=== PATIENT | female | born 1970 | race Caucasian/White ===

== ENCOUNTER 2016-12-18 18:41 | Emergency (ER) | payer OTHER ==
[~2016-12-18] VITALS: Ht 167.6 cm; Wt 80.5 kg
[~2016-12-18 18:41] MED LIST: D-ME118S6 PO; LEVO125T75 PO; LEVO750T25 PO; LORA-441 PO; MECL-77 PO; ONDA4TAB35 PO
[2016-12-18 18:46] VITALS: Ht 167.6 cm; Wt 80.5 kg
[2016-12-18] MEDS ORDERED: CLIN-73 PO (19:57)
[2016-12-18] MEDS ORDERED: IBUP-1542 PO (19:57)
--- NOTE | 2016-12-18 20:12 | ERD ---
ER Documentation Chief Complaint Date/Time DATE: 12/18/16 TIME: 20:05 Chief Complaint localize swelling right side of jaw x 1 day HPI Patient is a 46-year-old female with a past medical history of hypothyroidism, prediabetes who presents to the emergency department with swelling and redness to her right jaw. Patient states that she had "a pimple" which developed 2 days ago. Patient states she tried to pop it with no discharge elicited. Patient states that she also trying to use tweezers to open it up with no discharge elicited. Patient states that the area appears to be growing and redness and it feels warm to touch. She denies any fevers or chills. Patient denies any chest pain, shortness breath, nausea, vomiting, abdominal pain. Patient reports taking Advil with relief of symptoms. ROS All systems reviewed and are negative except as per history of present illness. Medications Home Meds Active Scripts Ibuprofen* (Motrin*) 600 Mg Tab, 600 MG PO Q6, #20 TAB Prov:ESTELA JAIN PA-C 12/18/16 Clindamycin Hcl* (Clindamycin Hcl*) 300 Mg Capsule, 300 MG PO TID for 10 Days, CAP Prov:ESTELA JAIN PA-C 12/18/16 Dextromethorphan Hb-Promethazine Hcl (Promethazine DM Syrup) 180 Ml Syrup, 10 ML PO Q6H Y for COUGH, #4 OZ Prov:DARIUS TONEY 04/13/16 Levofloxacin* (Levaquin*) 750 Mg Tablet, 750 MG PO DAILY for 5 Days, TAB Prov:DARIUS TONEY 04/13/16 Lorazepam* (Ativan*) 0.5 Mg Tablet, 0.5 MG PO Q8 Y for Dizziness, #5 0 Refills Prov:BLADIMIR ORELLANA MD 05/26/15 Meclizine Hcl* (Meclizine Hcl*) 25 Mg Tablet, 25 MG PO Q8H Y for Dizziness, #15 TAB 0 Refills Prov:BLADIMIR ORELLANA MD 05/26/15 Ondansetron Hcl* (Zofran* ODT) 4 mg -ODT Tab.disper, 4 MG PO Q6 Y for NAUSEA AND /OR VOMITING, #10 TAB Prov:BLADIMIR ORELLANA MD 05/26/15 Reported Medications Levothyroxine Sodium* (Levothyroxine Sodium*) 125 Mcg Tablet, 125 MCG PO DAILY 06/28/12 Allergies Allergies: Coded Allergies: Penicillins (Verified Allergy, Unknown, 04/13/16) PMhx/Soc History of Surgery: Yes (ABNORMAL UTERINE CELLS REMOVED) Anesthesia Reaction: No Hx Neurological Disorder: No Hx Respiratory Disorders: No Hx Cardiac Disorders: No Hx Psychiatric Problems: No Hx Miscellaneous Medical Probl: Yes (HPV) Hx Alcohol Use: Yes (OCCASIONAL) Hx Substance Use: Yes (MARIJUANA LAST USED 1 WEEK AGO) Hx Tobacco Use: No FmHx Family History: diabetes Physical Exam Vitals Vital Signs Date Time Temp Pulse Resp B/P Pulse Ox O2 Delivery O2 Flow Rate FiO2 12/18/16 18:46 98.1 83 20 124/69 99 Physical Exam GENERAL: Well-developed, well-nourished female. Appears in no acute distress. Speaking in full sentences. HEAD: Normocephalic, atraumatic. No deformities or ecchymosis. EYE: Pupils equal, round, and reactive to light. EOMs intact. No conjunctival erythema. No scleral icterus. No eye discharge. ENT: External ear without any masses or tenderness. Auditory canals clear bilaterally. TM visualized bilaterally, non-erythematous, non-bulging. Nasal mucosa pink with no discharge. Oropharynx is pink without any tonsillar erythema or exudates. No uvula deviation. No kissing tonsils. No trismus. NECK: Supple. No lymphadenopathy or thyromegaly. No meningismus. No hyperextension of the neck. LUNG: Clear to auscultation bilaterally. No rhonchi, wheezing, rales or coarse breath sounds. HEART: Regular rate and rhythm. No murmurs, rubs or gallops. ABDOMEN: Soft, nontender, and nondistended. Positive bowel sounds in all four quadrants. No rebound tenderness, no guarding. (-) McBurney's point tenderness. No CVA tenderness. BACK: No midline tenderness. EXTREMITES: Equal pulses bilaterally. No peripheral clubbing, cyanosis or edema. No unilateral leg swelling. NEUROLOGIC: Alert and oriented to person, place and time. Moving all four extremities. 5/5 strength in all extremities. Normal speech. Steady gait. SKIN: Normal color. Warm and dry. 0.5 cm circular pustular head with scabbing noted to the right cheek. Surrounding erythema and swelling noted. No active discharge or bleeding. No area of fluctuance. No lymphatic streaking. Procedures/MDM MEDICAL DECISION MAKING: This is a 46 female who presents with swelling to right cheek 1 day. Patient reports picking out "a pimple." Vital signs were reviewed. Patient was afebrile. Patient is pre-diabetic. Given these findings, the patients presentation is most consistent with cellulitis versus early abscess. I have a much lower clinical concern for necrotizing fasciitis, sepsis, gangrene, David- Jeanmarie syndrome, toxic epidural necrolysis, herpes zoster, anaphylaxis, allergic reaction, allergic contact dermatitis, irritant contact dermatitis, fungal infection. PRESCRIPTIONS: Clindamycin, ibuprofen DISCHARGE: At this time, patient is stable for discharge and outpatient management. Patient advised to avoid picking at lesion. Patient advised to avoid scratching lesion. Patient advised to use warm compresses 3-4 times per day to affected area. I have advised the patient to avoid any new products, creams or possible allergens. Patient advised to return to the ER for a wound recheck in 2 days. I have instructed the patient to promptly return to the ER at any time for any new or worsening symptoms including increased pain, fever, redness, swelling, warmth, difficulty breathing or vomiting. The patient and/or family expressed understanding of and agreement with this plan. All questions were answered. Home care instructions were provided. Departure Diagnosis: Primary Impression: Cellulitis Site of cellulitis: face Qualified Code: L03.211 - Cellulitis of face Condition: Stable Patient Instructions: Cellulitis, Facial Additional Instructions: Warm compresses advised 3-4 times per day. Return in 2 days for wound recheck. Return sooner for any new or worsening symptoms including fever, chills, increasing redness, warmth, swelling, pain. Call your primary care doctor TOMORROW for an appointment during the next 1-2 days.See the doctor sooner or return here if your condition worsens before your appointment time. ESTELA JAIN PA-C Dec 18, 2016 20:12 ESTELA JAIN PA-C Dec 18, 2016 20:12
== END 2016-12-18 20:04 | disposition home or self-care (01) ==
LOC: FTE 18:41 → E/R 20:04
DX: L03.211 Cellulitis of face (principal); E03.9 Hypothyroidism, unspecified
CPT/HCPCS: 99283

== ENCOUNTER 2016-12-19 10:04 | Emergency (ER) | payer OTHER ==
[~2016-12-19] VITALS: Wt 72.9 kg
[~2016-12-19 10:04] MED LIST changes: +CLIN-73 PO; +IBUP-1542 PO
--- NOTE | 2016-12-19 11:23 | ERD ---
ER Documentation Chief Complaint Date/Time DATE: 12/19/16 TIME: 11:19 Chief Complaint right side facial swelling since yesterday.no fevers. no stridor HPI This patient is a 46-year-old female with history of diabetes type 2 presenting to the emergency department for swelling of the right side of her face. The patient was here within the last 24 hours but states she attempted to pop the pimple on the right side of her face again and the area became more swollen and now she is returning. She denies any fevers, chills, drainage from the area, increased redness, or warmth. Patient denies all other symptoms currently. ROS All systems reviewed and are negative except as per history of present illness. Medications Home Meds Active Scripts Ibuprofen* (Motrin*) 600 Mg Tab, 600 MG PO Q6, #20 TAB Prov:ESTELA JAIN PA-C 12/18/16 Clindamycin Hcl* (Clindamycin Hcl*) 300 Mg Capsule, 300 MG PO TID for 10 Days, CAP Prov:ESTELA JAIN PA-C 12/18/16 Dextromethorphan Hb-Promethazine Hcl (Promethazine DM Syrup) 180 Ml Syrup, 10 ML PO Q6H Y for COUGH, #4 OZ Prov:DARIUS TONEY 04/13/16 Levofloxacin* (Levaquin*) 750 Mg Tablet, 750 MG PO DAILY for 5 Days, TAB Prov:DARIUS TONEY 04/13/16 Lorazepam* (Ativan*) 0.5 Mg Tablet, 0.5 MG PO Q8 Y for Dizziness, #5 0 Refills Prov:BLADIMIR ORELLANA MD 05/26/15 Meclizine Hcl* (Meclizine Hcl*) 25 Mg Tablet, 25 MG PO Q8H Y for Dizziness, #15 TAB 0 Refills Prov:BLADIMIR ORELLANA MD 05/26/15 Ondansetron Hcl* (Zofran* ODT) 4 mg -ODT Tab.disper, 4 MG PO Q6 Y for NAUSEA AND /OR VOMITING, #10 TAB Prov:BLADIMIR ORELLANA MD 05/26/15 Reported Medications Levothyroxine Sodium* (Levothyroxine Sodium*) 125 Mcg Tablet, 125 MCG PO DAILY 06/28/12 Allergies Allergies: Coded Allergies: Penicillins (Verified Allergy, Unknown, 04/13/16) PMhx/Soc History of Surgery: Yes (ABNORMAL UTERINE CELLS REMOVED) Anesthesia Reaction: No Hx Neurological Disorder: No Hx Respiratory Disorders: No Hx Cardiac Disorders: No Hx Psychiatric Problems: No Hx Miscellaneous Medical Probl: Yes (HPV) Hx Alcohol Use: Yes (OCCASIONAL) Hx Substance Use: Yes (MARIJUANA LAST USED 1 WEEK AGO) Hx Tobacco Use: No FmHx Noncontributory for chief complaint Physical Exam Vitals Vital Signs Date Time Temp Pulse Resp B/P Pulse Ox O2 Delivery O2 Flow Rate FiO2 12/19/16 10:17 98.2 84 20 119/61 98 Physical Exam INITIAL VITAL SIGNS: Reviewed by me. GENERAL: Alert and interactive. No acute distress. HEAD: Head is normocephalic and atraumatic. EYES: EOMI. No scleral icterus. No conjunctival injection. ENT: Moist mucosa. NECK: Supple. Full range of motion. RESPIRATORY: Normal respiratory effort. Clear breath sounds bilaterally. No wheezing, rales, or rhonchi. CV: Regular rate and rhythm. Normal S1 S2. No S3 or S4. No murmurs. ABDOMEN: Soft, non-distended, non-tender. No guarding. No rebound. No masses. EXTREMITIES: No deformity. SKIN: There is a slightly indurated area to the right jaw line. There is no warmth or erythema. NEUROLOGIC: Alert and oriented x 4. Speech is normal. Moves all extremities equally. No motor or sensory deficits noted. Procedures/MDM 46-year-old female presents secondary to complaints of swelling in the right jaw line. On physical examination the patient is afebrile and there is a slightly indurated area to the right jawline with no warmth or erythema. I have low suspicion for a severe cellulitis. Patient was here 24 hours ago for similar complaints but states area became more swollen. The patient only took 1 capsule of her clindamycin. She was advised to take 3 capsules today as prescribed. She also states she was not taking ibuprofen prescribed but she states she needed to do this as well. She understands the diagnosis and discharge plan. She states she will take the clindamycin and ibuprofen as prescribed. I advised patient to not squeeze the area as this will aggravate it and cause it to swell more. She was advised to return to the emergency department immediately should she have any new or worsening symptoms. The patient was hemodynamically stable prior to discharge. Departure Diagnosis: Primary Impression: Cellulitis Condition: Stable Patient Instructions: Cellulitis Additional Instructions: Continue taking the clindamycin and ibuprofen exactly as prescribed. Return to the department immediately if there are any new or worsening symptoms. Follow-up with your primary care physician within 1 week. Return to the emergency department immediately should you have any new or worsening symptoms, uncontrolled fevers, or other unexplained symptoms. Take all medications as directed. APARNA SORENSEN PA-C Dec 19, 2016 11:23
== END 2016-12-19 11:52 | disposition home or self-care (01) ==
LOC: FTE 10:04
DX: L03.211 Cellulitis of face (principal)
CPT/HCPCS: 99282

== ENCOUNTER 2017-01-09 09:42 | Emergency (ER) | payer OTHER ==
[~2017-01-09] VITALS: Ht 167.6 cm; Wt 80.0 kg
[2017-01-09 09:45] VITALS: Ht 167.6 cm; Wt 80.0 kg
[2017-01-09] MEDS ORDERED: IBUPROFEN 600 MG TAB PO ONE (10:00)
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
[2017-01-09 10:04] LABS: URINE BLOOD (Dip) POC Negative (NEGATIVE)
--- NOTE | 2017-01-09 10:53 | RADRPT ---
PROCEDURE: Thoracic spine series CLINICAL INDICATION: Pain. TECHNIQUE: 3 views. COMPARISON: None FINDINGS: Mild S-shaped scoliosis of the thoracic spine is noted. The pedicles are intact. No fractures or subluxations are noted. Disk spaces are well maintained. No significant degenerative changes are noted. IMPRESSION: 1. Mild thoracic S-shaped scoliosis. RPTAT: HH .Christian Miller MD, MD Date Time Electronically viewed and signed by .Christian Miller MD, on 01/09/2017 10:52 .G/
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
[2017-01-09] MEDS ORDERED: TRAM50TA2 PO (11:23)
[2017-01-09] MEDS ORDERED: NAPR-260 PO (11:23)
[2017-01-09] MEDS ORDERED: CYCL-319 PO (11:23)
[2017-01-09 11:34] VITALS: BP 111/73; PULSE 72; RESP 18; TEMP 98.1
== END 2017-01-09 11:34 | disposition home or self-care (01) ==
LOC: FTE 09:42
DX: S39.92XA Unspecified injury of lower back, initial encounter (principal); V43.52XA Car driver injured in collision with other type car in traffic accident, initial encounter
CPT/HCPCS: 72072; 72100; 81003; Z7502; Z7610

== ENCOUNTER 2017-01-30 08:41 | Emergency (ER) | payer OTHER ==
[~2017-01-30] VITALS: Wt 76.0 kg
[~2017-01-30 08:41] MED LIST changes: +CYCL-319 PO; +NAPR-260 PO; +TRAM50TA2 PO
[2017-01-30] MEDS ORDERED: IBUP-1542 PO (09:17)
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
== END 2017-01-30 09:38 | disposition home or self-care (01) ==
LOC: FTE 08:41
DX: M79.602 Pain in left arm (principal)
CPT/HCPCS: 93005; Z7502

== ENCOUNTER 2017-09-05 07:59 | Emergency (ER) | payer OTHER ==
[~2017-09-05] VITALS: Ht 167.6 cm; Wt 77.5 kg
[2017-09-05 08:01] VITALS: Ht 167.6 cm; Wt 77.5 kg
[2017-09-05] MEDS ORDERED: FAMOTIDINE 20 MG TAB PO STA (09:19)
[2017-09-05] MEDS ORDERED: ONDANSETRON (ODT) 4 MG TAB ODT STA (09:19)
--- NOTE | 2017-09-05 09:23 | ERD ---
ER Documentation Chief Complaint Chief Complaint pt bib self with c/o vomiting , nausea since Thursday night, HPI 46 y/o female with history of hypothyroidism and poor compliance to medications ; presents to ED, c/o 6 days with persistent nausea and abdominal bloating. Denies fever or chills, no diarrhea or constipation. Possible suspicious food last week. No recent traveling. No treatment attempted at this time. ROS Resp: Clear to auscultation bilaterally Cardio: Regular rate and rhythm, no murmurs Abd: Soft, mild tenderness to deep palpation, no peritoneal signs. Increased bowel sounds Back: No midline or flank tenderness Medications Home Meds Active Scripts Ibuprofen* (Motrin*) 600 Mg Tab, 600 MG PO Q6H Y for PAIN AND OR ELEVATED TEMP, #30 TAB Prov:GREY CANO MD 01/30/17 Cyclobenzaprine Hcl* (Cyclobenzaprine Hcl*) 10 Mg Tablet, 10 MG PO QHS, #7 TAB Prov:ELY GONZALEZC 01/09/17 Naproxen* (Naprosyn*) 500 Mg Tablet, 500 MG PO BID Y for PAIN AND/OR INFLAMMATION, #30 TAB Prov:ELY GONZALEZC 01/09/17 Tramadol HCl (Tramadol HCl) 50 Mg Tablet, 50 MG PO Q4 Y for PAIN, #20 TAB Prov:ELY GONZLAEZC 01/09/17 Ibuprofen* (Motrin*) 600 Mg Tab, 600 MG PO Q6, #20 TAB Prov:ESTELA JAINC 12/18/16 Clindamycin Hcl* (Clindamycin Hcl*) 300 Mg Capsule, 300 MG PO TID for 10 Days, CAP Prov:ESTELA JAINC 12/18/16 Dextromethorphan Hb-Promethazine Hcl (Promethazine DM Syrup) 180 Ml Syrup, 10 ML PO Q6H Y for COUGH, #4 OZ Prov:DARIUS TONEY 04/13/16 Levofloxacin* (Levaquin*) 750 Mg Tablet, 750 MG PO DAILY for 5 Days, TAB Prov:DARIUS TONEY 04/13/16 Lorazepam* (Ativan*) 0.5 Mg Tablet, 0.5 MG PO Q8 Y for Dizziness, #5 0 Refills Prov:BLADIMIR ORELLANA MD 05/26/15 Meclizine Hcl* (Meclizine Hcl*) 25 Mg Tablet, 25 MG PO Q8H Y for Dizziness, #15 TAB 0 Refills Prov:BLADIMIR ORELLANA MD 05/26/15 Ondansetron Hcl* (Zofran* ODT) 4 mg -ODT Tab.disper, 4 MG PO Q6 Y for NAUSEA AND /OR VOMITING, #10 TAB Prov:BLADIMIR ORELLANA MD 05/26/15 Reported Medications Levothyroxine Sodium* (Levothyroxine Sodium*) 125 Mcg Tablet, 125 MCG PO DAILY 06/28/12 Allergies Allergies: Coded Allergies: Penicillins (Verified Allergy, Unknown, 04/13/16) PMhx/Soc History of Surgery: No Anesthesia Reaction: No Hx Neurological Disorder: No Hx Respiratory Disorders: No Hx Cardiac Disorders: No Hx Psychiatric Problems: No Hx Miscellaneous Medical Probl: No Hx Alcohol Use: No Hx Substance Use: No Hx Tobacco Use: No FmHx PMH: Hypothyroidism, Pre diabetes Mother:DM Father: CAD Non smoker Denies the use of recreational drugs Physical Exam Vitals Vital Signs Date Time Temp Pulse Resp B/P Pulse Ox O2 Delivery O2 Flow Rate FiO2 09/05/17 08:01 97.5 76 16 122/79 99 Physical Exam Const: Mild distress, dry oral mucosa Resp:Clear to auscultation bilaterally Cardio: Regular rate and rhythm, no murmurs Abd: Soft, mild tenderness to deep palpation, no peritoneal signs. Increased bowel sounds Back: No midline or flank tenderness Result Diagram: 09/05/1793709/05/17 09 Results 24 hrs Laboratory Tests Test 09/05/17 09:38 White Blood Count 6.710^3/ul Red Blood Count 4.5810^6/ul Hemoglobin 10.9g/dl Hematocrit 36.0% Mean Corpuscular Volume 78.6fl Mean Corpuscular Hemoglobin 23.8pg Mean Corpuscular Hemoglobin Concent 30.3g/dl Red Cell Distribution Width 14.6% Platelet Count 29408^3/UL Mean Platelet Volume 9.1fl Neutrophils % 62.0% Lymphocytes % 27.7% Monocytes % 6.6% Eosinophils % 3.0% Basophils % 0.4% Nucleated Red Blood Cells % 0.0/100WBC Neutrophils # 4.110^3/ul Lymphocytes # 1.910^3/ul Monocytes # 0.410^3/ul Eosinophils # 0.210^3/ul Basophils # 0.010^3/ul Nucleated Red Blood Cells # 0.010^3/ul Urine Color YELLOW Urine Clarity SLIGHTLY CLOUDY Urine pH 5.0 Urine Specific [place] 1.023 Urine Ketones NEGATIVEmg/dL Urine Nitrite NEGATIVEmg/dL Urine Bilirubin NEGATIVEmg/dL Urine Urobilinogen 1+mg/dL Urine Leukocyte Esterase 2+Maribel/ul Urine Microscopic RBC 3/HPF Urine Microscopic WBC 9/HPF Urine Squamous Epithelial Cells MANY/HPF Urine Mucus MANY/HPF Urine Hemoglobin NEGATIVEmg/dL Urine Glucose NEGATIVEmg/dL Urine Total Protein NEGATIVEmg/dl Sodium Level 143mmol/L Potassium Level 3.5mmol/L Chloride Level 103mmol/L Carbon Dioxide Level 28mmol/L Anion Gap 16 Blood Urea Nitrogen 10mg/dl Creatinine 0.90mg/dl Glucose Level 93mg/dl Calcium Level 9.2mg/dl Total Bilirubin 0.2mg/dl Direct Bilirubin 0.00mg/dl Indirect Bilirubin 0.2mg/dl Aspartate Amino Transf (AST/SGOT) 29IU/L Alanine Aminotransferase (ALT/SGPT) 39IU/L Alkaline Phosphatase 48IU/L Total Protein 7.6g/dl Albumin 4.3g/dl Globulin 3.30g/dl Albumin/Globulin Ratio 1.30 Lipase 101U/L Thyroid Stimulating Hormone (TSH) 48.100MIU/L Current Medications Medications (Trade) Dose Ordered Sig/Perlita Route PRN Reason Start Time Stop Time Status Last Admin Dose Admin Famotidine (Pepcid) 20 mg ONCE STAT PO 09/05/17 09:19 09/05/17 09:23 DC 09/05/17 09:50 Ondansetron HCl (Zofran Odt) 8 mg ONCE STAT ODT 09/05/17 09:19 09/05/17 09:23 DC 09/05/17 09:50 Procedures/MDM 46 y/o female with hypothyroidism and poor compliance to medications presents with persistent nausea. Physical exam and vital signs in normal range. Low suspicion for acute abdomen. Differential includes: worsening of hypothyroidism , gastritis, cholelithiasis, cholecystitis. appendicitis, UTI, less likely pancreatitis, renal stone. Plan: CBC: Showed mild anemia, patient hemodynamically stable, patient with history of anemia, continue iron OTC as prescribed by PCP CMP, lipase: WNL TSH: 48 Urinalysis: c/w UTI Pepcid and zofran given today in ER. Plan: The patient will be DC home, with Rx for ciprofloxacin and Zofran prn. The patient has levothyroxine at home, recommend adherence to treatment to prevent complications. Follow up with her PCP in 2-4 days. The patient was instructed that if symptoms persist, worsen or new symptoms develop to follow-up with her primary care provider. If the patient is unable to see the primary care provider, then return to the emergency department as needed. Departure Diagnosis: Primary Impression: UTI (urinary tract infection) Additional Impressions: Hypothyroidism Anemia Condition: Stable Patient Instructions: Anemia, Hypothyroidism, Understanding Urinary Tract Infections (UTIs) Additional Instructions: Please schedule a follow up appointment with your primary doctor in 2 -4 days and bring all the information and prescriptions that we have given to you today. If the doctor is unavailable and the symptoms persist or worsen please return to the emergency department ISAAC YOUSIF MD Sep 05, 2017 09:23
[2017-09-05 10:06] LABS: WHITE BLOOD COUNT 6.7 10^3/ul (4.8-10.8)
[2017-09-05 10:07] LABS: BASOPHILS % 0.4 % (0.0-2.0); EOSINOPHILS # 0.2 10^3/ul (0.0-0.5); HEMOGLOBIN 10.9 g/dl (12.0-16.0); LYMPHOCYTES # 1.9 10^3/ul (0.8-2.9); LYMPHOCYTES % 27.7 % (15.0-51.0); MEAN CORPUSCULAR HEMOGLOBIN 23.8 pg (29.0-33.0); MEAN CORPUSCULAR HGB CONC 30.3 g/dl (32.0-37.0); MEAN CORPUSCULAR VOLUME 78.6 fl (82.0-101.0); MEAN PLATELET VOLUME 9.1 fl (7.4-10.4); MONOCYTE # 0.4 10^3/ul (0.3-0.9); MONOCYTES % 6.6 % (0.0-11.0); NEUTROPHIL # 4.1 10^3/ul (1.6-7.5); PLATELET COUNT 293 10^3/UL (140-415); RED BLOOD COUNT 4.58 10^6/ul (4.20-5.40); RED CELL DISTRIBUTION WIDTH 14.6 % (11.5-14.5)
[2017-09-05 10:26] LABS: ADD UMIC YES; UR ASCORBIC ACID NEGATIVE (NEGATIVE); UR BILIRUBIN (Dip) NEGATIVE (NEGATIVE); UR BLOOD (Dip) NEGATIVE (NEGATIVE); UR CLARITY SLIGHTLY CLOUDY (CLEAR); UR COLOR YELLOW (YELLOW); UR GLUCOSE (Dip) NEGATIVE (NEGATIVE); UR KETONES (Dip) NEGATIVE (NEGATIVE); UR LEUKOCYTE ESTERASE (Dip) 2+ Leu/ul (NEGATIVE); UR MUCUS MANY /HPF (NONE SEEN); UR NITRITE (Dip) NEGATIVE (NEGATIVE); UR RBC 3 /HPF (0-5); UR SPECIFIC GRAVITY (Dip) 1.023 (1.003-1.030); UR SQUAMOUS EPITHELIAL CELL MANY /HPF (FEW); UR TOTAL PROTEIN (Dip) NEGATIVE (NEGATIVE); UR UROBILINOGEN (Dip) 1+ mg/dL (NEGATIVE)
[2017-09-05 10:46] LABS: ALBUMIN 4.3 g/dl (3.3-4.9); ALBUMIN/GLOBULIN RATIO 1.3; BILIRUBIN,INDIRECT 0.2 mg/dl (0-1.1); BILIRUBIN,TOTAL 0.2 mg/dl (0.2-1.3); CALCIUM 9.2 mg/dl (8.4-10.2); CREATININE 0.9 mg/dl (0.44-1.00); TOTAL PROTEIN 7.6 g/dl (6.1-8.1)
[2017-09-05 10:47] LABS: POTASSIUM 3.5 mmol/L (3.5-5.1)
[2017-09-05 11:37] LABS: THYROID STIMULATING HORMONE 48.1 MIU/L (0.465-4.680)
[2017-09-05] MEDS ORDERED: CIPR500T4 PO (12:21)
[2017-09-05] MEDS ORDERED: ONDA4TAB14 PO (12:21)
[2017-09-05] MEDS ORDERED: FLUC150T17 PO (12:32)
== END 2017-09-05 12:52 | disposition home or self-care (01) ==
LOC: FTE 07:59
DX: N39.0 Urinary tract infection, site not specified (principal); E03.9 Hypothyroidism, unspecified; D64.9 Anemia, unspecified
CPT/HCPCS: 36415; 80053; 81001; 83690; 84443; 85025; Z7502; Z7610; 99284

== ENCOUNTER 2017-10-23 09:26 | Emergency (ER) | payer OTHER ==
[~2017-10-23] VITALS: Ht 167.6 cm; Wt 79.6 kg
[~2017-10-23 09:26] MED LIST changes: +CIPR500T4 PO; +FLUC150T17 PO; +ONDA4TAB14 PO
[2017-10-23 09:29] VITALS: Ht 167.6 cm; Wt 79.6 kg
--- NOTE | 2017-10-23 10:14 | ERD ---
ER Documentation Chief Complaint Chief Complaint Complains of a cough and colds x 3 days HPI 46-year-old female, presents to the emergency department complaining of 3 days with progressive worsening of upper respiratory symptoms including productive cough, runny nose, chest congestion and subjective fever. The patient has been taking [id number] medication with mild relief of the symptoms today she is requesting a prescription for antibiotics. ROS SYSTEMIC symptoms: Subjective fever, chills, no night sweats, no weight loss EYE symptoms: No blurred vision, no eye discharge OTOLARYNGEAL symptoms: No hearing loss. No ear pain, no sore throat CARDIOVASCULAR symptoms: No chest pain or discomfort, no palpitations. PULMONARY symptoms: No dyspnea, Productive cough, no wheezing. GASTROINTESTINAL symptoms: No abdominal pain, no nausea, no vomiting, no diarrhea MUSCULOSKELETAL symptoms: No arthralgias, no muscle aches. NEUROLOGY symptoms: No confusion, no syncope, no numbness or tingling. SKIN: No rashes Medications Home Meds Active Scripts Promethazine HCl/Codeine (Prometh-Codein 6.25-10 mg/5 ml) 5 Ml Syrup, 5 ML PO QHS Y for COUGH for 5 Days, #120 ML Prov:ISAAC YOUSIF MD 10/23/17 Fluconazole* (Diflucan*) 150 Mg Tablet, 150 MG PO ONCE, #1 TAB Prov:ISAAC YOUSIF MD 10/23/17 Azithromycin* (Zithromax*) 250 Mg Tablet, 250 MG PO .ZPACK DIRECTED, #6 TAB TAKE 500 MG (2 TABS) THE FIRST DAY THEN 250 MG (1 TAB) DAYS 2-5 Prov:ISAAC YOUSIF MD 10/23/17 Fluconazole* (Diflucan*) 150 Mg Tablet, 150 MG PO ONCE, #1 TAB Prov:ISAAC YOUSIF MD 09/05/17 Ondansetron (Ondansetron Odt) 4 Mg Tab.rapdis, 4 MG PO Q6H Y for NAUSEA AND/OR VOMITING, #10 TAB Prov:ISAAC YOUSIF MD 09/05/17 Ciprofloxacin Hcl* (Ciprofloxacin Hcl*) 500 Mg Tablet, 250 MG PO BID for 5 Days , #10 TAB Prov:ISAAC YOUSIF MD 09/05/17 Ibuprofen* (Motrin*) 600 Mg Tab, 600 MG PO Q6H Y for PAIN AND OR ELEVATED TEMP, #30 TAB Prov:GREY CANO MD 01/30/17 Cyclobenzaprine Hcl* (Cyclobenzaprine Hcl*) 10 Mg Tablet, 10 MG PO QHS, #7 TAB Prov:ELY GONZALEZ-C 01/09/17 Naproxen* (Naprosyn*) 500 Mg Tablet, 500 MG PO BID Y for PAIN AND/OR INFLAMMATION, #30 TAB Prov:ELY GONZALEZ PA-C 01/09/17 Tramadol HCl (Tramadol HCl) 50 Mg Tablet, 50 MG PO Q4 Y for PAIN, #20 TAB Prov:ELY GONZALEZ-C 01/09/17 Ibuprofen* (Motrin*) 600 Mg Tab, 600 MG PO Q6, #20 TAB Prov:ESTELA JAIN-C 12/18/16 Clindamycin Hcl* (Clindamycin Hcl*) 300 Mg Capsule, 300 MG PO TID for 10 Days, CAP Prov:ESTELA JAIN-C 12/18/16 Dextromethorphan Hb-Promethazine Hcl (Promethazine DM Syrup) 180 Ml Syrup, 10 ML PO Q6H Y for COUGH, #4 OZ Prov:DARIUS TONEY 04/13/16 Levofloxacin* (Levaquin*) 750 Mg Tablet, 750 MG PO DAILY for 5 Days, TAB Prov:DARIUS TONEY 04/13/16 Lorazepam* (Ativan*) 0.5 Mg Tablet, 0.5 MG PO Q8 Y for Dizziness, #5 0 Refills Prov:BLADIMIR ORELLANA MD 05/26/15 Meclizine Hcl* (Meclizine Hcl*) 25 Mg Tablet, 25 MG PO Q8H Y for Dizziness, #15 TAB 0 Refills Prov:BLADIMIR ORELLANA MD 05/26/15 Ondansetron Hcl* (Zofran* ODT) 4 mg -ODT Tab.disper, 4 MG PO Q6 Y for NAUSEA AND /OR VOMITING, #10 TAB Prov:BLADIMIR ORELLANA MD 05/26/15 Reported Medications Levothyroxine Sodium* (Levothyroxine Sodium*) 125 Mcg Tablet, 125 MCG PO DAILY 06/28/12 Allergies Allergies: Coded Allergies: Penicillins (Verified Allergy, Unknown, 04/13/16) PMhx/Soc History of Surgery: No Anesthesia Reaction: No Hx Neurological Disorder: No Hx Respiratory Disorders: No Hx Cardiac Disorders: No Hx Psychiatric Problems: No Hx Miscellaneous Medical Probl: Yes (thyroid) Hx Alcohol Use: No Hx Substance Use: No Hx Tobacco Use: No Physical Exam Vitals Vital Signs Date Time Temp Pulse Resp B/P Pulse Ox O2 Delivery O2 Flow Rate FiO2 10/23/17 09:29 97.7 94 20 133/79 99 Physical Exam Patient is in no acute distress, vital signs stable. Alert and fully oriented. EYES: PERRLA, EOMI, Sclera and conjunctiva appear normal. EARS: Canals clear, tympanic membranes WNL THROAT: Erythematous oropharynx. NECK: Supple, No lymphadenopathy. Full ROM without pain or tenderness. HEART: RRR, no rubs, murmurs, clicks or gallops. LUNGS: Bilateral rhonchi ABDOMEN: Soft, non-tender without masses or hepatosplenomegaly. EXTREMITIES: No edema bilaterally. BACK: Full ROM, no deformity, normal back exam NEURO: Cranial nerves grossly intact, no motor or sensory deficit Procedures/MDM 46-year-old female, previously healthy, presents to the emergency department with worsening of respiratory symptoms that are not responding to over-the- counter medication; the patient is requesting a prescription for antibiotics. Physical examination unremarkable, vital signs stable. Clinical presentation most likely consistent with viral respiratory infection, therefore, antibiotics are not indicated at this time, however, the patient is requesting a prescription.Differential diagnosis include but not limited to: Respiratory infection bacterial/viral/fungal. Asthma/COPD, pneumonitis, allergies, GERD. Less likely foreign body aspiration, cardiac related, aspiration pneumonia, malignancy. During the ED course the patient remained stable, no new complaints. Results and clinical impression discussed with patient who agrees with management. The patient is stable to be treated outpatient and will be discharged home with a Rx for azithromycin, promethazine, and fluconazole, some side effects of prescribed medications (headache, rash, nausea, vomiting, diarrhea, drowsiness, habituation, bleeding, hypertension, interactions with other medications) were reviewed. The patient was instructed to follow up with the primary care provider in the next 48h. If symptoms persist, worsen or new symptoms develop, then patient should return to the ED immediately. Instructions explained and given directly by me to the patient in Surinamese with acknowledgment and demonstrated understanding. Disclaimer: Inadvertent spelling and grammatical errors are likely due to EHR/ dictation software use and do not reflect on the overall quality of patient care. Also, please note that the electronic time recorded on this note does not necessarily reflect the actual time of the patient encounter. Departure Diagnosis: Primary Impression: Bronchitis Condition: Stable Additional Instructions: Call your primary care doctor TOMORROW for an appointment during the next 1-2 days. See the doctor sooner or return here if your condition worsens before your appointment time. Thank you very much for allowing us to participate in your care. Your health and safety is our top priority at [facility]. Have prescriptions filled and follow precisely the directions on the label. Follow-up with primary care provider during the next 4 days and bring all the information and medications prescribed. If illness has not improved in 2 days, then make an appointment with primary care provider. If the provider is unavailable, return to the Emergency Department immediately. ISAAC YOUSIF MD Oct 23, 2017 10:14
[2017-10-23] MEDS ORDERED: FLUC150T17 PO (10:37)
[2017-10-23] MEDS ORDERED: AZIT250T94 PO (10:37)
[2017-10-23] MEDS ORDERED: PROM5SYR2 PO (10:37)
== END 2017-10-23 10:45 | disposition home or self-care (01) ==
LOC: FTE 09:26
DX: J20.9 Acute bronchitis, unspecified (principal)
CPT/HCPCS: 99284